=== PATIENT | male | born 1985 | race Two or more races ===

== ENCOUNTER 2017-01-07 19:58 | Emergency (ER) | payer OTHER ==
[~2017-01-07] VITALS: Ht 177.8 cm; Wt 60.0 kg
[2017-01-07 20:45] VITALS: BP 160/102
== END 2017-01-07 23:45 | disposition left against medical advice (07) ==
LOC: ER 19:58
DX: Z04.3 Encounter for examination and observation following other accident (principal); M25.511 Pain in right shoulder; Z53.21 Procedure and treatment not carried out due to patient leaving prior to being seen by health care provider